=== PATIENT | female | born 2000 | race Two or more races ===

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

== ENCOUNTER 2024-06-17 07:14 | Emergency (ER) | payer MEDICAID ==
[~2024-06-17] VITALS: Ht 162.6 cm; Wt 96.7 kg
[2024-06-17 07:46] VITALS: BP 118/78; PULSE 92; RESP 18; TEMP 98.2; O2SAT 98
[2024-06-17] MEDS ORDERED: AUG875T PO (08:04)
[2024-06-17] MEDS ORDERED: ACET500T58 PO (08:04)
--- NOTE | 2024-06-17 08:04 | ED.PDOC ---
History of Present Illness(SKN HPI Comments 24 year old presents for cat abrasions x 1 day. Abrasions occurred to the RUE. Reports it was a stray cat Last Tdap: unknown. Denies medical hx. Chief Complaint: Animal Bite Time Seen by MD: 07:30 Primary Care Provider: NONE History of Present Illness: Nurses Notes, Medications, Allergies Allergies: Coded Allergies: NO KNOWN ALLERGIES (Unverified , 11/27/18) Home Meds Active Scripts Acetaminophen (Acetaminophen) 500 Mg Tab, 500 MG PO Q6HP PRN for 7 Days, #28 TAB 0 Refills Prov:TASHI VALENTIN TREASURY MANAGER 06/17/24 Amoxicillin & Pot Clavulanate (AUGMENTIN TABLET) 875 Mg Tb, 875 MG PO BID for 7 Days, #14 TAB 0 Refills Prov:TASHI VALENTIN TREASURY MANAGER 06/17/24 Information Source: Patient Mode of Arrival: Ambulatory Past Medical History PAST MEDICAL HISTORY: Denies Surgical History: Denies all surgeries LOSS PREVENTION DETECTIVE History: No Pertinent LOSS PREVENTION DETECTIVE History Family History Family History: Unknown Social History Smoker: Non-Smoker Alcohol: Denies ETOH Use Drugs: Marijuana Lives In: Home All Other Systems: Reviewed and Negative (per hpi) Physical Exam General Appearance: No Apparent Distress, Normal HEENT: Normal ENT Inspection, Pharynx Normal, TMs Normal Neck: Full Range of Motion, Non-Tender, Normal, Normal Inspection Respiratory: Chest Non-Tender, Lungs Clear, No Accessory Muscle Use, No Respiratory Distress, Normal Breath Sounds Cardiovascular: No Edema, No JVD, No Murmur, No Gallop, Normal Peripheral Pulses, Regular Rate/Rhythm Breast Exam: Deferred Gastrointestinal: No Organomegaly, Non Tender, No Pulsatile Mass, Normal Bowel Sounds, Soft Genitalia: Deferred Pelvic: Deferred Rectal: Deferred Extremities: No calf tenderness, Normal capillary refill, Normal inspection, Normal range of motion, Non-tender, No pedal edema Musculoskeletal : Apperance: Normal Neurologic: Alert, software design engineer II-XII nml as Tested, No Motor Deficits, Normal Affect, Normal Mood, No Sensory Deficits Cerebellar Function: Normal Reflexes: Normal Skin: Dry, Normal Color, Warm Lymphatic: No Adenopathy Was a procedure done? Was a procedure done?: No Images 1 - 2 puncture wounds. hemostasis. cap refill < 3 sec. sensation intact Differential Diagnosis (INTG) Differential Diagnosis: Puncture Wound, Other X-Ray, Labs, Meds, VS Vital Signs Date Time Temp Pulse Resp B/P (MAP) Pulse Ox O2 Delivery O2 Flow Rate FiO2 06/17/24 07:46 98.2 92 18 118/78 (91) 98 98.2 06/17/24 07:46 92 18 98 Room Air 06/17/24 07:17 98.2 92 18 118/78 (91) 98 Current Medications Medications (Trade) Dose Ordered Sig/Florentino Route Start Time Stop Time Status Last Admin Diphtheria/ Tetanus/Acell Pertussis (Boostrix T-Dap) 0.5 ml ONCE ONCE IM 06/17/24 08:15 06/17/24 08:16 DC 06/17/24 08:15 Acetaminophen (Tylenol Tablet) 650 mg ONCE ONCE PO 06/17/24 08:15 06/17/24 08:16 DC 06/17/24 08:16 X-Ray, Labs, Meds, VS Comment Based on the history, exam, and test performed, there does not seem to be a retained foreign body, nerve injury, vascular injury, tendon injury, bone injury or foreign body. Wound appears clean. No evidence of purulent discharge. Doubtful for rabies No rabies vaccine given. Tdapy updated Wound cleaned in the ER with jet irrigation. After copious irrigation, wound was closed with (except on hand/foot) Will let wound heal by secondary intention to decrease risk of abscess formation. Patient will be discharged home with prophylactic antibiotics. Will discharge home with Augmentin 875mg PO BID x 7days. Patient to [facility] with [facility] or PCP in 2-3 days for wound re- check. Return to ER as needed. Time of 1ST Reevaluation: 08:29 Reevaluation 1ST: Improved Patient Education/Counseling: Diagnosis, Treatment Family Education/Counseling: Diagnosis, Treatment Departure 1 Departure Time of Disposition: 08:29 Impression: Primary Impression: Cat bite Qualified Codes: W55.01XA - Bitten by cat, initial encounter Disposition: HOME / SELF CARE / HOMELESS Condition: Fair e-Prescriptions Acetaminophen (Acetaminophen) 500 Mg Tab 500 MG PO Q6HP PRN for 7 Days, #28 TAB 0 Refills Prov: TASHI VALENTIN TREASURY MANAGER 06/17/24 Amoxicillin & Pot Clavulanate (AUGMENTIN TABLET) 875 Mg Tb 875 MG PO BID for 7 Days, #14 TAB 0 Refills Prov: TASHI VALENTIN NP 06/17/24 Critical Care Note Critical Care Time?: No Stability Stability form required: No Heart Score Heart Score: Heart Score Response (Comments) Value History N/A 0 EKG N/A 0 Age N/A 0 Risk Factors N/A 0 Troponin N/A 0 Total 0 TASHI VALENTIN NP Jun 17, 2024 08:04
[2024-06-17] MEDS: TETANUS-DIPTH-ACEL PERTUSSIS 0.5ML SYR Tdap IM ONE (08:15)
[2024-06-17] MEDS: NEOMYCIN-BACITRACIN-POLYM UNITDOSE PKG TOP OINT TOP ONE (08:16)
[2024-06-17] MEDS: ACETAMINOPHEN 325 MG TAB PO ONE (08:16)
== END 2024-06-17 08:38 | disposition home or self-care (01) ==
LOC: ER 07:14
DX: S60.511A Abrasion of right hand, initial encounter (principal); Z79.899 Other long term (current) drug therapy; W55.01XA Bitten by cat, initial encounter; Y93.89 Activity, other specified; Y92.89 Other specified places as the place of occurrence of the external cause; Y99.8 Other external cause status
CPT/HCPCS: 90471; 90715